=== PATIENT | male | born 1975 | race Caucasian/White ===

== ENCOUNTER → 2019-12-30 15:09 | Outpatient (BNVA) | payer OTHER, SELFPAY | PROVIDERS: Referring Provider Podiatrist Foot & Ankle Surgery; Visit Provider Podiatrist Foot & Ankle Surgery | DX: M79.671 Pain in right foot (principal); M79.672 Pain in left foot | CPT/HCPCS: 73630; 77077 ==

== ENCOUNTER → 2020-06-30 08:15 | Outpatient (BNVA) | payer OTHER, SELFPAY | PROVIDERS: Referring Provider Dermatology; Visit Provider Dermatology | DX: L30.9 Dermatitis, unspecified (principal); L21.9 Seborrheic dermatitis, unspecified; L91.8 Other hypertrophic disorders of the skin; L85.3 Xerosis cutis; F17.220 Nicotine dependence, chewing tobacco, uncomplicated | CPT/HCPCS: 99203; 99204 ==

== ENCOUNTER → 2020-08-17 08:45 | Outpatient (BNVA) | payer OTHER, SELFPAY | PROVIDERS: Visit Provider Family Medicine | DX: Z11.59 Encounter for screening for other viral diseases (principal) | CPT/HCPCS: 87635 ==

== ENCOUNTER → 2020-09-15 16:51 | Outpatient (BNVA) | payer OTHER, SELFPAY | PROVIDERS: Visit Provider Dermatology | DX: D48.9 Neoplasm of uncertain behavior, unspecified (principal) | CPT/HCPCS: 88304 ==

== ENCOUNTER → 2021-04-30 13:37 | Outpatient (BNVA) | payer OTHER, SELFPAY | PROVIDERS: Visit Provider Podiatrist Foot & Ankle Surgery | DX: M79.672 Pain in left foot (principal) | CPT/HCPCS: 73630 ==

== ENCOUNTER 2021-04-30 14:11 | Outpatient (CLI) | payer OTHER, SELFPAY | END 2021-04-30 14:12 | disposition home or self-care (01) | LOC: SPT 14:12 | PROVIDERS: Visit Provider Podiatrist Foot & Ankle Surgery | DX: Z46.89 Encounter for fitting and adjustment of other specified devices (principal); M72.2 Plantar fascial fibromatosis | CPT/HCPCS: 97760; L4361 ==

== ENCOUNTER → 2021-08-09 16:15 | Outpatient (BNVA) | payer OTHER, SELFPAY | PROVIDERS: Visit Provider Podiatrist Foot & Ankle Surgery | DX: M79.672 Pain in left foot (principal) | CPT/HCPCS: 73630 ==

== ENCOUNTER 2021-09-19 15:26 | Emergency (ER) | payer OTHER, SELFPAY ==
[2021-09-19 15:34] VITALS: BP 152/107; PULSE 95; RESP 18; TEMP 36.6; O2SAT 96; BMI 33.9
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
[2021-09-19] MEDS: acetaminophen 500 mg Tablet 1000 MG PO (16:17)
[2021-09-19] MEDS: ketorolac 30 mg/mL INJ IM (16:19)
== END 2021-09-19 17:58 | disposition home or self-care (01) ==
PROVIDERS: Emergency Provider Emergency Medicine
DX: S60.012A Contusion of left thumb without damage to nail, initial encounter (principal); T20.10XA Burn of first degree of head, face, and neck, unspecified site, initial encounter; T31.0 Burns involving less than 10% of body surface; W40.8XXA Explosion of other specified explosive materials, initial encounter
CPT/HCPCS: 73130; 96372; 99283; J1885

== ENCOUNTER → 2022-01-18 09:12 | Outpatient (BNVA) | payer OTHER, SELFPAY | PROVIDERS: Visit Provider Orthopaedic Surgery | DX: M25.811 Other specified joint disorders, right shoulder (principal); M25.511 Pain in right shoulder | CPT/HCPCS: 73030 ==

== ENCOUNTER 2022-02-28 11:31 | Emergency (ER) | payer OTHER, SELFPAY ==
[2022-02-28 11:34] VITALS: BP 169/95; PULSE 97; RESP 16; TEMP 37.6; O2SAT 96; BMI 35.9
[2022-02-28] MEDS: sodium chloride 0.9% 1,000 ML 999 ML IV (12:21)
[2022-02-28 12:23] VITALS: RESP 16; O2SAT 94
[2022-02-28] MEDS: morphine 4 mg/mL SDV 1 mL 6 MG IVP (12:23)
[2022-02-28] MEDS: ondansetron 2 mg/ML SDV 2 mL 4 MG IVP (12:23)
[2022-02-28 12:35] LABS: Add Urine Microscopic? NO; Charge for UA Resulting for Rev
--- NOTE | 2022-02-28 12:48 | W.ED.GENADLT ---
HPI - General Adult General: Chief complaint: General Medical Stated complaint: lower left back pain Time Seen by Provider: 02/28/22 12:08 Source: patient Mode of arrival: ambulatory Limitations: no limitations History of Present Illness: 46-year-old male presents emergency room complaining of left flank pain worse when he twists or moves or bends. He has a history of nephrolithiasis he is not had any hematuria no fever sweats chills mild dysuria recently. Onset (ago): minute(s) Location: head and left (flank) Severity: mild Quality: stabbing and sharp Pain Consistency: intermittent Relieving factors: rest Exacerbating factors: movement Associated symptoms: Reports headache(s); Deny chest pain, confusion, cough, diaphoresis, decreased appetite, dyspnea, fevers/chills, malaise, nausea, rash, palpitations, seizures, short of breath, syncope, vomiting or weakness Treatments prior to arrival: none Review of Systems Const: Denies: fever(s), chills, malaise or diaphoresis ENMT: Denies: throat pain, ear or mastoid pain, nasal discharge or nasal congestion Card: Denies: chest pain, palpitations or syncope Resp: Denies: dyspnea GI: Denies: nausea or vomiting : Denies: flank pain, difficulty urinating, dysuria, urinary frequency or urinary urgency Skin/Breast: Denies: rash Neuro: Reports: headache(s); Denies: numbness in extremities, weakness in extremities or confusion PFS ED PFSH: Medical History Nephrolithiasis Surgical History H/O repair of rotator cuff History of arthroscopic surgery of shoulder Family History Other CAD (coronary artery disease) Cancer Chronic kidney disease (CKD) Diabetes Hyperlipidemia Hypertension Lung disease Psychiatric illness Denies family history of Clotting disorder Dementia Suicide Anesthesia complication Bleeding disorder Family history of premature coronary artery disease Stroke Social History Smoking and tobacco status: never smoked Alcohol intake: never Adopted: No Lives independently: Yes Household members: spouse, significant other and children Housing: House Marital status: Life Partner Number of children: 2 Current occupational status: employed Current occupation: maintence Physical Exam Const: COMMON NORMALS: no acute distress GENERAL APPEARANCE: cooperative and comfortable ORIENTATION/CONSCIOUSNESS: Yes awake, Yes oriented to person, Yes oriented to place and Yes oriented to time HENMT: COMMON NORMALS: normocephalic and atraumatic HEAD & SCALP: normocephalic and atraumatic Eye: COMMON NORMALS: Equal, round and reactive pupils present, EOMs intact bilaterally, conjunctivae normal and no scleral icterus CONJUNCTIVA: Yes conjunctivae normal PUPIL: Yes Equal, round and reactive pupils present Neck/C-Spine: COMMON NORMALS: full ROM, no lymphadenopathy, supple and no JVD Lymph: LYMPHATIC: no lymphadenopathy noted and no lymphedema noted Resp: COMMON NORMALS: normal respiratory effort, No retractions, No use of accessory muscles and clear to auscultation bilaterally AUSCULTATION: clear to auscultation bilaterally Cardio: COMMON NORMALS: no JVD, regular rate, regular rhythm and No murmurs present (Cardio) RATE: regular rate RHYTHM: regular rhythm GI: COMMON NORMALS: Soft to palpation and No hepatosplenomegaly present AUSCULTATION: Yes normoactive bowel sounds PALPATION: Yes Soft to palpation, No Tenderness to palpation present (GI), No Guarding due to palpation present (GI) and Yes No hepatosplenomegaly present : BLADDER/KIDNEY EXAM: Yes CVA tenderness on the left Back/Pelvis: GENERAL BACK: Yes CVA tenderness Extremity: COMMON NORMALS: normal to inspection, capillary refill normal, no clubbing, cyanosis or edema, no calf tenderness and no pedal edema Neuro: SENSORIUM/ORIENTATION: Yes oriented to person, Yes oriented to place and Yes oriented to time Skin: COMMON NORMALS: no rashes or lesions noted GENERAL SKIN EXAM: no rashes or lesions noted Course Vital Signs: Vital signs: Vital Signs Temperature 99.6 F 02/28/22 11:34 Pulse Rate 97 02/28/22 11:34 Respiratory Rate 16 02/28/22 15:37 Blood Pressure 169/95 02/28/22 11:34 Pulse Oximetry 94 02/28/22 16:09 MDM - General Adult Medical Decision Making No hematuria no sign of stone on CT. Pain is reproducible with movement. Treat as musculoskeletal medications given as below follow-up as needed return if is worsening problems Medical Records I reviewed the patient's medical records. Lab Data I reviewed the patient's lab results. : 02/28/22 12:50 02/28/22 12:14 Radiology Impressions Abdomen/Pelvis CT 02/28/22 12:52 IMPRESSION: 1. No obstructing renal or ureteral calculi. No hydronephrosis in either kidney. 2. Normal appendix in the RIGHT lower quadrant. 3. Diffuse fatty infiltration liver with mild hepatomegaly. 4. Tiny fat-containing umbilical hernia. 5. No acute findings in the abdomen or pelvis. Laboratory Results WBC 8.6 10^3/uL (4.0-10.0) 02/28/22 12:50 Corrected WBC Cancelled 02/28/22 12:14 RBC 5.15 10^6/uL (4.1-5.3) 02/28/22 12:50 Hgb 15.1 g/dL (11.7-16.6) 02/28/22 12:50 Hct 45.7 % (42.0-52.0) 02/28/22 12:50 MCV 88.7 fl (80-94) 02/28/22 12:50 MCH 29.3 pg (28.0-34.0) 02/28/22 12:50 MCHC 33.0 g/dL (30.0-36.0) 02/28/22 12:50 RDW 13.0 % (12.1-15.1) 02/28/22 12:50 Plt Count 278 10^3/cmm (130-400) 02/28/22 12:50 MPV 9.8 fL (7.4-10.4) 02/28/22 12:50 Gran % Cancelled 02/28/22 12:14 Neut % (Auto) 74.3 % 02/28/22 12:50 Lymph % (Auto) 10.7 % 02/28/22 12:50 [place] % (Auto) 11.3 % 02/28/22 12:50 Eos % (Auto) 1.5 % 02/28/22 12:50 Baso % (Auto) 1.0 % 02/28/22 12:50 Neut # (Auto) 6.41 10^3/uL (1.8-7.7) 02/28/22 12:50 Lymph # (Auto) 0.9 10^3/uL (0.8-4.8) 02/28/22 12:50 [place] # (Auto) 1.0 10^3/uL (0.2-0.9) H 02/28/22 12:50 Eos # (Auto) 0.1 10^3/uL (0.0-0.8) 02/28/22 12:50 Baso # (Auto) 0.1 10^3/uL (0.0-0.1) 02/28/22 12:50 Absolute Gran (auto) Cancelled 02/28/22 12:14 Nucleated RBC % (auto) 0 % 02/28/22 12:50 Nucleated RBCs # 0.0 /100WBC 02/28/22 12:50 Sodium 133 mmol/L (136-145) L 02/28/22 12:14 Potassium 4.6 mmol/L (3.5-5.1) 02/28/22 12:14 Chloride 97 mmol/L (98-107) L 02/28/22 12:14 Carbon Dioxide 25 mmol/L (22-29) 02/28/22 12:14 Anion Gap 15.6 (5-19) 02/28/22 12:14 BUN 13 mg/dL (6-20) 02/28/22 12:14 Creatinine 1.1 mg/dL (0.7-1.2) 02/28/22 12:14 GFR Calculation 72.4 mL/min (90-130) L 02/28/22 12:14 Glucose 100 mg/dL (65-115) 02/28/22 12:14 Calculated Osmolality 276 mOsm/kg (285-295) L 02/28/22 12:14 Calcium 10.2 mg/dL (8.5-10.5) 02/28/22 12:14 Total Bilirubin 0.5 mg/dL (0.15-1.2) 02/28/22 12:14 AST 39 U/L (0-40) 02/28/22 12:14 ALT 75 U/L (0-41) H 02/28/22 12:14 Alkaline Phosphatase 63 IU/L (40-130) 02/28/22 12:14 Total Protein 8.0 g/dL (6.6-8.7) 02/28/22 12:14 Albumin 4.7 g/dL (3.5-5.2) 02/28/22 12:14 Globulin 3.3 g/dL (1.3-4.6) 02/28/22 12:14 Lipase 33 U/L (13-60) 02/28/22 12:14 Urine Color Yellow (Yellow) 02/28/22 12:14 Urine Appearance Clear (CLEAR) 02/28/22 12:14 Urine pH 6 (5-7) 02/28/22 12:14 Ur Specific [place] 1.015 (1.005-1.030) 02/28/22 12:14 Urine Protein Neg (Negative) 02/28/22 12:14 Urine Glucose (UA) Norm (Normal) 02/28/22 12:14 Urine Ketones Negative (Negative) 02/28/22 12:14 Urine Blood Neg (Negative) 02/28/22 12:14 Urine Nitrate Negative (Negative) 02/28/22 12:14 Urine Bilirubin Neg (Negative) 02/28/22 12:14 Urine Urobilinogen 1 mg/dL (Negative) H 02/28/22 12:14 Ur Leukocyte Esterase Negative (Negative) 02/28/22 12:14 Discharge Plan Discharge Patient Disposition: Home Clinical Impression: Back pain Condition: Stable Prescriptions: New hydrocodone-acetaminophen 5-325 mg tablet 1 tab PO Q6H PRN (Reason: pain) Qty: 20 0RF prednisone 20 mg tablet 20 mg PO TID Qty: 15 0RF Rx Instructions: 1 p.o. 3 times daily x3 days, 1 p.o. daily x2 days, 1 p.o. daily x2 days tizanidine 4 mg tablet 4 mg PO Q6H PRN (Reason: muscle spasticity) Qty: 20 0RF Rx Instructions: do not exceed 3 doses per 24 hrs No Action Prilosec OTC 20 mg Tablet,Delayed Release (Dr/Ec) 20 mg PO BID PRN (Reason: Acid Reflux) 0RF Discharge Orders: Discharge ED (Routine); Ordered 02/28/22 Ordered By: Mansoor Mcmahon Discharge Diet: Usual diet Discharge Activity: Increase activity as tolerated Activity Restrictions/Additional Instructions: Avoid lifting greater than 20 pounds for the next 5 to 7 days. If any worsening or change symptoms return. Coding Level of Care Code ED Adolescent Counselor for Chg Fwd Exam Comprehensive
--- NOTE | 2022-02-28 12:52 | CT_ITS ---
WS: [id number] CT ABDOMEN PELVIS TECHNIQUE: Noncontrast CT of the abdomen and pelvis with coronal and sagittal reformatted images. CLINICAL INFORMATION: flank pain COMPARISON: None. DLP: 1967.[address] scans at [facility] use at least one of these dose optimization techniques: automated e xposure control; mA and/or kV adjustment per patient size (includes targeted exams where dose is matc hed to clinical indication); or iterative reconstruction. FINDINGS: Diffuse fatty infiltration liver. Mild hepatomegaly. Normal spleen. Gallbladder appears normal. [place] l noncontrast pancreas. Normal GE junction. Subsegmental atelectasis in the lung bases. Adrenal gland s are normal. No hydronephrosis in the LEFT kidney. No obstructing LEFT renal or ureteral calculi. LE FT ureter is decompressed. No hydronephrosis in RIGHT kidney. No obstructing RIGHT renal or ureteral calculi. A few very tiny nonobstructing calyceal tip calculi. Normal caliber abdominal aorta. Normal sigmoid colon. No evidence of high-grade small or large bowel obstruction. Normal appendix in the RIGHT lower quadrant. Tiny fat-containing umbilical hernia. No ab dominal or pelvic lymphadenopathy. No inguinal lymphadenopathy. Mild disc bulging L4-L5. CT/CT kidney stone [id number] IMPRESSION: 1. No obstructing renal or ureteral calculi. No hydronephrosis in either kidne y. 2. Normal appendix in the RIGHT lower quadrant. 3. Diffuse fatty infiltration liver with mild hepatomegaly. 4. Tiny fat-containing umbilical hernia. 5. No acute findings in the abdomen or pelvis.
[2022-02-28 12:53] LABS: Bilirubin Urine Neg (Negative); Blood Urine Neg (Negative); Glucose Urine UA Norm (Normal); Ketones Urine Negative (Negative); Leukocyte Esterase Urine Negative (Negative); Nitrate Urine Negative (Negative); Protein Urine Neg (Negative); Specific Gravity, Urine 1.015 (1.005-1.030); Urine Appearance Clear (CLEAR); Urine Color Yellow (Yellow); Urobilinogen Urine 1 mg/dL (Negative); pH Urine 6 (5-7)
[2022-02-28 13:01] LABS: Alanine Aminotransferase 75 U/L (0-41); Albumin Level 4.7 g/dL (3.5-5.2); Alkaline Phosphatase 63 IU/L (40-130); Anion Gap 15.6 (5-19); Aspartate Amino Transferase 39 U/L (0-40); Blood Urea Nitrogen 13 mg/dL (6-20); Calcium 10.2 mg/dL (8.5-10.5); Carbon Dioxide 25 mmol/L (22-29); Chloride 97 mmol/L (98-107); Globulin 3.3 g/dL (1.3-4.6); Glomerular Filtration Rate 72.4 mL/min (90-130); Glucose 100 mg/dL (65-115); Lipase 33 U/L (13-60); Osmolality Calculated 276 mOsm/kg (285-295); Potassium 4.6 mmol/L (3.5-5.1); Sodium 133 mmol/L (136-145); Total Bilirubin 0.5 mg/dL (0.15-1.2)
[2022-02-28 13:04] LABS: Basophils # 0.1 10^3/uL (0.0-0.1); Eosinophils # 0.1 10^3/uL (0.0-0.8); Eosinophils % 1.5 %; Hematocrit 45.7 % (42.0-52.0); Hemoglobin 15.1 g/dL (11.7-16.6); Lymphocytes # 0.9 10^3/uL (0.8-4.8); Lymphocytes % 10.7 %; Mean Corpuscular Hemoglobin 29.3 pg (28.0-34.0); Mean Corpuscular Volume 88.7 fl (80-94); Mean Platelet Volume 9.8 fL (7.4-10.4); Monocytes % 11.3 %; Neutrophils # 6.41 10^3/uL (1.8-7.7); Neutrophils % 74.3 %; Nucleated Red Blood Cells % 0 %; Platelet Count 278 10^3/cmm (130-400); Red Blood Count 5.15 10^6/uL (4.1-5.3); White Blood Count 8.6 10^3/uL (4.0-10.0)
--- NOTE | 2022-02-28 14:43 | PC.NURSE ---
ATTEMPTED DC PT. NO PAPERWORK AVAILABLE. WILL CONTINUE TO WAIT FOR DC PAPERWORK TO BE COMPLETED.
[2022-02-28 15:37] VITALS: RESP 16; O2SAT 92
[2022-02-28] MEDS: morphine 4 mg/mL SDV 1 mL IVP (15:37)
[2022-02-28] MEDS: promethazine 25 mg/mL SDV 1 mL IM (16:03)
[2022-02-28 16:09] VITALS: O2SAT 94
== END 2022-02-28 16:10 | disposition home or self-care (01) ==
PROVIDERS: Emergency Medicine; Emergency Provider Family Medicine
DX: M54.9 Dorsalgia, unspecified (principal)
CPT/HCPCS: 74176; 80053; 81000; 81003; 83690; 85025; 96361; 96372; 96374; 96375; 96376; 99284; J2270; J2405; J2550; J7030

== ENCOUNTER → 2022-03-02 15:38 | Outpatient (BNVA) | payer OTHER, SELFPAY | PROVIDERS: Visit Provider Family Medicine | DX: I10 Essential (primary) hypertension (principal); M54.9 Dorsalgia, unspecified | CPT/HCPCS: 36415; 80061; 82550; 83036 ==

== ENCOUNTER → 2022-03-21 09:58 | Outpatient (BNVA) | payer OTHER, SELFPAY | PROVIDERS: Visit Provider Podiatrist Foot & Ankle Surgery | DX: M79.672 Pain in left foot (principal) | CPT/HCPCS: 73630 ==

== ENCOUNTER 2022-09-19 18:30 | Outpatient (CLI) | payer OTHER, SELFPAY | END 2022-09-19 18:31 | disposition home or self-care (01) | LOC: SLEEP 09-20 08:03 | PROVIDERS: PCP Family Medicine; Visit Provider Otolaryngology | DX: G47.33 Obstructive sleep apnea (adult) (pediatric) (principal) | CPT/HCPCS: G0399 ==

== ENCOUNTER 2022-09-28 20:00 | Outpatient (CLI) | payer OTHER, SELFPAY | END 2022-09-28 20:01 | disposition home or self-care (01) | LOC: SLEEP 09-29 06:44 | PROVIDERS: PCP Family Medicine; Visit Provider Otolaryngology | DX: G47.33 Obstructive sleep apnea (adult) (pediatric) (principal) | CPT/HCPCS: 95811 ==

== ENCOUNTER → 2025-03-17 11:30 | Outpatient (BNVA) | payer BC, SELFPAY | PROVIDERS: PCP Family Medicine; Visit Provider Family Medicine | DX: I10 Essential (primary) hypertension (principal); E66.9 Obesity, unspecified; G47.33 Obstructive sleep apnea (adult) (pediatric); R79.89 Other specified abnormal findings of blood chemistry | CPT/HCPCS: 80053; 80061; 82306; 82607; 84443; 85025; G0103 ==

== ENCOUNTER 2025-09-11 16:16 | Emergency (ER) | payer BC, SELFPAY ==
--- OUTSIDE RECORDS SUMMARY | 2025-04-29 10:30 | XMS_ITS ---
Author Organization [facility] Address [address] [facility] [place] [address] Care Team Providers Care Bell Neck Hammerer Name Role Phone Cory Valenzuela DO Primary Care Provider Unavail Angel Santiago Unavailable [phone] REASON FOR VISIT Vas Consult Encounters Encounter Location Date Provider Diagnosis [facility] [address] [place] [facility] [place] [address] 04/29/2025 Angel Rangel Plan Of Treatment No Information Progress Notes * Brandon CORTEZDOB: 6 (50 yo M)Acc No.[id number]:04/29/2025 Progress Notes Patient: Brandon MAURO Provider: Ankur Rangel APRN :1975 A ge:49 Y S ex:Male Date:04/29/2025 Address:[address] [place], [place] [id number] Pcp:Cory Valenzuela DO Subjective: * Chief Complaints: * 1 . Vas Consult. * Medical History: Objective: * Vitals: Assessment: Plan: * Treatment: * Billing Information: * Visit Code: * Procedure Codes: * Electronic signature of Ghanshyam Rangel APRN on 09/11/2025 at 05:10 PM CDT Sign off status: Pending * Provider: Ankur Rangel APRN Date: 0 04/29/2025 Generated for Rylee verdin/Royal/Katiesmitting on: 1 05:10 PM CDT
[2025-09-11 16:29] VITALS: BP 138/90; PULSE 89; RESP 20; TEMP 36.7; O2SAT 99
--- OUTSIDE RECORDS SUMMARY | 2025-09-11 17:10 | XMS_ITS | Encounter Summary ---
Author Organization [facility] Address [address] [place] [address] Care Team Providers Care Education Manager Name Role Phone Unavailable Primary Care Provider Unavailabl e Encounter Details Date Type Department Care Team (Late st Contact Info) Description 03/01/2005 Outpatient Historical [facility] Dermatology- 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
--- OUTSIDE RECORDS SUMMARY | 2025-09-11 17:10 | XMS_ITS | Clinical Summary ---
Author Organization 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
--- OUTSIDE RECORDS SUMMARY | 2025-09-11 17:10 | XMS_ITS | Patient Health Record ---
Author Organization [facility] Address [address] [place] [address] Care Team Providers Care Book Sewing Machine Operator Name Role Phone Cory Valenzuela DO Primary Care Provider Unavail Angel Santiago Unavailable [phone] Reason For Referral No Information Encounters Encounter Location Date Provider Diagnosis [facility] [address] [place] [address] 03/25/2025 Angel Rangel Plan Of Treatment No Information Insurance Providers Payer Name Payer Address Payer Phone Subscriber Number Group Number Insured Name Patient Relationship to Insured Coverage Start Date Coverage End Date [place] [address] [place], [place] [id number] Brandon Cortez Self - patient is the insured
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
== END 2025-09-11 20:07 | disposition home or self-care (01) ==
PROVIDERS: Emergency Provider Physician Assistant; PCP Family Medicine
DX: S70.12XA Contusion of left thigh, initial encounter (principal); V89.2XXA Person injured in unspecified motor-vehicle accident, traffic, initial encounter; Z87.891 Personal history of nicotine dependence
CPT/HCPCS: 73552; 73562; 99283

== ENCOUNTER → 2025-11-10 08:06 | Outpatient (BNVA) | payer OTHER, SELFPAY | PROVIDERS: PCP Family Medicine; Visit Provider Nurse Practitioner | DX: M19.011 Primary osteoarthritis, right shoulder (principal); M75.31 Calcific tendinitis of right shoulder | CPT/HCPCS: 20610; 73030; 99204; J1100; J2795; J3301; J9999 ==